=== PATIENT | female | born 1960 | race Caucasian/White ===

== ENCOUNTER 2024-07-04 13:43 | Emergency (ER) | payer OTHER, SELFPAY ==
[2024-07-04 13:45] VITALS: BP 185/98
[2024-07-04 14:41] LABS: % Basophils 0.2 % (0-2); % Eosinophils 0.4 % (0-6); % Immature Granulocytes 0.2 % (0-0.5); % Lymphocytes 22.9 % (20.5-51.1); % Monocytes 8.4 % (1.7-9.3); % Neutrophils 67.9 % (42.2-75.2); ALT (SGPT) 23 U/L (0-35); AST (SGOT) 27 U/L (14-36); Absolute Lymphocytes 1.1 10^3/uL (1.2-3.4); Absolute Monocytes 0.4 10^3/uL (0.1-0.6); Absolute Neutrophils 3.2 10^3/uL (1.4-6.5); Alkaline Phosphatase 74 U/L (38-126); Blood Urea Nitrogen 9 mg/dl (7-17); Calcium 9.5 mg/dl (8.4-10.2); Carbon Dioxide 25 mmol/L (22-30); Chloride 105 mmol/L (98-107); Glucose 101 mg/dl (70-99); Hematocrit 40.1 % (37.0-47.0); Hemoglobin 13.6 g/dL (12.0-16.0); Mean Corp Hgb Conc. 33.9 g/dL (33.0-37.0); Mean Corpuscular Hgb 32.2 pg (27.0-31.0); Mean Corpuscular Volume 94.8 fL (81.0-99.0); Nucleated Red Blood Cells % 0 %; Platelet Count 176 10^3/uL (130-400); Potassium 4.1 mmol/L (3.5-5.1); Red Blood Cell Count 4.23 10^6/uL (4.20-5.40); Red Cell Dist. Width 12.2 % (11.5-14.5); Sodium 136 mmol/L (135-145); Total Bilirubin 0.4 mg/dl (0.2-1.3); Total Protein 6.4 g/dl (6.3-8.2); White Blood Cell Count 4.7 10^3/uL (4.8-10.8); eGFR > 60.00
[2024-07-04 14:43] LABS: COVID-19 Antigen Negative (Negative)
[2024-07-04 15:01] LABS: Troponin I < 0.012 ng/ml
--- NOTE | 2024-07-04 15:52 | ED.GENMED ---
History of Present Illness
General
Chief Complaint: Cold/Flu/URI Symptoms
Source: patient and spouse
Exam Limitations: none
Time Seen by Provider: 07/04/24 15:38
Nursing documentation reviewed up to this point in time: agreed with
History of Present Illness
History of Present Illness:
63-year-old female with no known chronic medical issues presents to the ER for evaluation of multiple complaints. Patient reports she has been feeling unwell since around Wednesday. She says that she has had some tearing/pressure in the right
eye/sinuses. She says she has had some coughing and fatigue. Today went to the hairdresser and had some burning in the left side of her chest associate with some arm tingling. She decided to come to the ER for evaluation. She has not had
objective fever although she says that 'normally my temperature is 97 �F and I checked it the other day and it was 98 �F.' She denies any nausea, vomiting, diarrhea, abdominal pain. She denies any other complaints.
Past History
Past History
ED Past Medical History: None
ED Past Surgical History: Cholecystectomy
Social History
Personal:
Living: with family
Employment: Employed
Review of Systems
Review of Systems
All Other Systems: ROS reviewed and negative except as documented in HPI and ROS
Constitutional: Reports fatigue; Denies fever or chills
EENT: Reports tearing; Denies sore throat
Respiratory: Reports cough; Denies trouble breathing
Cardiac: Reports chest pain; Denies diaphoresis or palpitations
ABD/GI: Denies abdominal pain, nausea, vomiting or diarrhea
: Denies flank pain
Musculoskeletal: Denies neck pain or back pain
Neurological: Denies dizzy or headache
Phy Exam
Physical Exam
Physical Exam:
General: Awake, alert, oriented x3; no acute distress
Head: Normocephalic, atraumatic
Eyes: Conjunctiva normal, EOMI, pupils equal round and reactive to light bilaterally
Throat: Airway intact, handling secretions
Neck: Trachea midline, supple without meningismus
Lungs: Clear to auscultation bilaterally, no wheezing, rales, rhonchi
Heart: Regular rate and rhythm, no murmurs, gallops, or rubs
Abd: Soft, non distended, nontender
Neuro: No gross deficits
Extremities: No edema in extremities, equal pulses in all extremities
Scores
Heart Failure Risk
Heart Failure Risk Score: Not Applicable
Heart Score for Chest Pain Patients
STEMI patient?: Not applicable
Withdrawal Assessment of Alcohol
Withdrawal Assessment Completed?: Not applicable
Course
Orders/Labs/Results
Orders:
Orders
07/04/24 13:49
Electrocardiogram (*1) Urgent
Reason for Study: Chest Pain
EKG- Treatment ONCE
07/04/24 14:16
COVID-19 Antigen Urgent
Source: Nasal Swab
Complete Blood Count/With Diff Urgent
Comprehensive Metabolic Panel Urgent
Troponin I Urgent
INF RAPID [Influenza A+B Rapid Molecular] Urgent
ALONZO Source: Nasal Swab
Specimen Description:
07/04/24 15:39
CR Chest - 2 Views Urgent
Comment:
Reason For Exam: chest pain, +flu
Abnormal Lab Results
07/04/24
14:16
WBC 4.7 L 10^3/uL
(4.8-10.8)
MCH 32.2 H pg
(27.0-31.0)
Absolute Lymphs (auto) 1.1 L 10^3/uL
(1.2-3.4)
Creatinine 0.5 L mg/dL
(0.6-1.0)
Glucose 101 H mg/dl
(70-99)
07/04/24 14:16
07/04/24 14:16
Vital Signs
Initial and Last Documented VS:
Initial Vital Signs
Temp Pulse Resp BP Pulse Ox
36.8 C 79 16 185/98 100
07/04/24 13:45 07/04/24 13:45 07/04/24 13:45 07/04/24 13:45 07/04/24 13:45
Last Documented Vital Signs
Temp Pulse Resp BP Pulse Ox
36.8 C 79 16 185/98 100
07/04/24 13:45 07/04/24 13:45 07/04/24 13:45 07/04/24 13:45 07/04/24 13:45
MDM/Problems Addressed
Differential Diagnosis Includes:
Pneumonia, bronchitis, myocarditis/pericarditis; ACS considered very unlikely clinically
MDM/Problems Addressed:
63-year-old female presents to the ER for evaluation of multiple complaints�has had some tearing/sinus pressure, coughing and today had some transient chest discomfort as well. Came to the ER for assessment. Hypertensive otherwise normal vitals.
Physical exam as above. Her EKG shows sinus rhythm no acute ischemic changes. Labs were sent in triage her CBC and CMP showed no clinically significant abnormalities. Her troponin is undetectable. She was positive for influenza which I think
accounts for her symptoms; suspect chest pain may have been from recent coughing. Check chest x-ray to rule out pneumonia. Will continue to monitor and reassess.
Chest x-ray reviewed by me shows no acute disease. Vital signs stable. Stable for discharge follow-up with PCP as an outpatient. We did discuss her elevated blood pressure today and need for outpatient follow-up. All questions answered.
Acute Exacerbation and/or Progression of Chronic Illness:
Acutely hypertensive
Acute Exacerbation and/or Progression of Chronic Illness: HTN
*Radiology
Radiology exam reviewed: preliminary read by ED provider and radiology read reviewed
*Pulse Oximetry
Patient hypoxic: no
*EKG
Interpreted by ED Provider?: Yes
Heart Rate: 70
Rate: normal
Rhythm: sinus
[place]: normal axis
Interval: normal interval
QRS Pattern: normal QRS
Ischemia: no ischemia
*Critical Care Note
Total Time (30-74mins, 75-104mins- exclusive of procedures): Not Applicable
Data Reviewed
Source: patient and spouse
ED Attending Note
-
Portions of this chart may have been created with voice recognition software.� Occasional wrong word or��sound alike� substitutions may have occurred due to the inherent limitations of voice recognition software.
Discharge Plan
Departure
Patient Disposition: Home (Routine Discharge)
Date of Disposition: 07/04/24
Time of Disposition: 15:59
Patient with high blood pressure during this ER visit?: Yes
Discharge Problem:
Influenza A, Chest pain, Hypertension
Instructions: Flu in adults - Discharge instructions, Chest Pain PCP Follow Up, BLOOD PRESSURE
Prescriptions:
No Action
Hydroxycut
1 tab PO DAILY
Milk Thistle
PO
Multivitamin
1 tab PO DAILY
Osteo Bi-Flex Caplet
1 tab PO DAILY
Pepcid:
2 tab PO DAILY
Probiotic
1 tab PO DAILY
Vitamin B Complex
1 tab PO DAILY
Activity Restrictions/Additional Instructions:
Thank you for visiting the Emergency Department at [facility].
1. Please schedule a follow up appointment as directed. Call first thing tomorrow morning to make an appointment.
2. If indicated, please take your medications as instructed and indicated on discharge paperwork.
3. If any of your symptoms do not improve, or persist, or become more severe within 6-12 hours, please return to the emergency department for further care.
4. Please return to the emergency department if you develop a headache, neck pain/stiffness, fever greater than 100.4F, chest pain, shortness of breath, persistent nausea, vomiting, slurred speech, difficulty walking, numbness/tingling, weakness,
signs of infection or any other symptoms that are worrisome to you.
Please call [phone] if you have any questions.
Interventions
Interventions:
*Risk Screen - Suicide Last Done: 07/04/24 13:45
*Neglect/Abuse Screening Last Done: 07/04/24 13:45
Discharge Date and Time
Print Language: ANGUILLAN
[2024-07-04 17:02] VITALS: BP 141/88
== END 2024-07-04 17:20 | disposition home or self-care (01) ==
LOC: EMR 13:43
PROVIDERS: Emergency Medicine; EMERGENCY PHYSICIAN Emergency Medicine; FAMILY PHYSICIAN Family Medicine
DX: J10.1 Influenza due to other identified influenza virus with other respiratory manifestations (principal); I10 Essential (primary) hypertension; R07.9 Chest pain, unspecified; R20.2 Paresthesia of skin; Z11.52 Encounter for screening for COVID-19; Z90.49 Acquired absence of other specified parts of digestive tract
CPT/HCPCS: 99285; 71046; 80053; 84484; 85025; 87502; 87811; 93005